=== PATIENT | male | born 1990 ===

== ENCOUNTER 2020-03-23 18:23 | Emergency (ER) | payer MEDICAID, SELFPAY ==
[~2020-03-23] VITALS: Ht 175.3 cm; Wt 134.3 kg
[2020-03-23 18:25] VITALS: BP 132/92; Ht 175.3 cm; Wt 134.3 kg
== END 2020-03-23 19:08 | disposition home or self-care (01) ==
LOC: ED 18:23
DX: M79.10 Myalgia, unspecified site (principal); R05 Cough; R43.0 Anosmia; Z20.828 Contact with and (suspected) exposure to other viral communicable diseases
CPT/HCPCS: U0003